=== PATIENT | male | born 2000 | race Caucasian/White ===

== ENCOUNTER → 2022-04-06 11:41 | Outpatient (REF) | payer OTHER, SELFPAY ==
--- NOTE | 2022-04-06 11:52 | ECG_ITS ---
Test Reason : methadone for qt prolongnation Blood Pressure : / mmHG Vent. Rate : 082 BPM Atrial Rate : 082 BPM P-R Int : 138 ms QRS Dur : 082 ms QT Int : 386 ms P-R-T Axes : 053 071 063 degrees QTc Int : 450 ms Normal sinus rhythm Normal ECG No previous ECGs available Referred By: Sheryl Kasper Electronically Signed By:DORA CANDELARIO
== END ==
LOC: HO.CARD 11:41
PROVIDERS: Visit Provider Family Medicine
DX: Z79.899 Other long term (current) drug therapy (principal)
CPT/HCPCS: 93005